=== PATIENT | male | born 1990 | race Caucasian/White ===

== ENCOUNTER 2020-11-04 02:28 | Emergency (ER) | payer MEDICAID ==
[~2020-11-04] VITALS: Ht 182.9 cm; Wt 75.0 kg
[2020-11-04 02:37] VITALS: BP 138/93
[2020-11-04] MEDS ORDERED: FLUORESCEIN SODIUM 1MG/STRIP BOTHEYE ONE (03:00)
[2020-11-04] MEDS ORDERED: ACETAMINOPHEN 325MG TABLET PO ONE (03:00)
[2020-11-04] MEDS ORDERED: TETRACAINE 0.5% OPHTH DROPS 4ML BOTHEYE ONE (03:00)
== END 2020-11-04 03:18 | disposition left against medical advice (07) ==
LOC: ER 02:28
DX: H57.12 Ocular pain, left eye (principal); E11.9 Type 2 diabetes mellitus without complications
CPT/HCPCS: 99281